=== PATIENT | male | born 1965 | race Caucasian/White ===

== ENCOUNTER 2019-12-14 19:18 | Emergency (ER) | payer OTHER | END 2019-12-14 20:49 | disposition other institution (70) | LOC: ED 19:18 | DX: Z02.89 Encounter for other administrative examinations (principal) ==

== ENCOUNTER 2019-12-14 19:18 | Emergency (ER) | payer BC ==
[~2019-12-14] VITALS: Ht 170.2 cm; Wt 81.6 kg
[2019-12-14 19:24] VITALS: Ht 170.2 cm; Wt 81.6 kg
[2019-12-14 20:49] VITALS: BP 162/106
== END 2019-12-14 20:49 | disposition other institution (70) ==
LOC: ED 19:18
DX: I10 Essential (primary) hypertension (principal)